=== PATIENT | female | born 1960 | race Caucasian/White ===

== ENCOUNTER 2023-06-10 16:30 | Emergency (ER) | payer OTHER, SELFPAY ==
--- NOTE | 2023-06-10 16:41 | ED.FEMALEGU ---
HPI - Female Genitourinary General Chief complaint: Urogenital-Female Stated complaint: uti symptoms Time Seen by Provider: 06/10/23 16:39 Source: patient Mode of arrival: ambulatory Limitations: no limitations History of Present Illness HPI Narrative: Meghana is a 62-year-old female patient presenting to the clinic today with complaints of possible urinary tract infection. She reports she is already on Bactrim for urinary tract infection but she began having some pressure and urinary frequency. Is wanting her urine recheck. Related Data Home Medications Medication Instructions Recorded Confirmed bupropion HCl 150 mg tablet,12 hr mg PO 06/10/23 sustained-release carbamazepine 100 mg mg PO 06/10/23 tablet,extended release,12 hr cholecalciferol (vitamin D3) 25 25 mcg PO DAILY 06/10/23 06/10/23 mcg (1,000 unit) tablet citalopram 40 mg tablet mg 06/10/23 famotidine 40 mg tablet mg 06/10/23 fluticasone propionate 50 1 spray intranasal DAILY 06/10/23 06/10/23 mcg/actuation nasal spray,suspension levothyroxine 50 mcg tablet mcg 06/10/23 rizatriptan 10 mg tablet mg 06/10/23 sulfamethoxazole 800 tablet 06/10/23 mg-trimethoprim 160 mg tablet Allergies Allergy/AdvReac Type Severity Reaction Status Date / Time adhesive tape Allergy Rash Verified 06/10/23 16:56 cefuroxime Allergy Unknown Verified 06/10/23 16:56 meperidine [From Demerol] Allergy Rash Verified 06/10/23 16:56 Review of Systems Review of Systems: Pertinent positives per HPI. Patient denies any fever, chills, rash, headache, visual changes, dizziness, cough, shortness of breath, chest pain, palpitations, nausea, vomiting, diarrhea, constipation, abdominal pain. PMFSH Comments At the time of my signature, I reviewed and agree with the nursing past medical, surgical, social, and family history. There is no relevant family history pertinent to the patient complaint. Exam Narrative: General: Well-developed, obese, in no apparent distress. Head: Normocephalic, atraumatic. Cardio: Regular rate and rhythm, s1 and s2 normal, no murmur appreciated. Resp: Clear to auscultation bilaterally, no rhonchi, rales, wheezing or rubs. Abdomen: Soft, pliable, bowel sounds present in all quadrants, non-tender to palpation, no organomegly, no CVAT tenderness. Course Course Emergency Course: Portions of this record may have been created with voice recognition software. Level of Care: Express Care Visit Vital Signs Vital signs: Vital signs reviewed MDM - Female Genitourinary MDM Narrative Medical decision making narrative: At the time of visit patient is resting comfortably on the exam table. Patient appears to be nontoxic. Labs: UA is negative for any sign of infection, blood, or protein. Plan: Will have the patient continue taking Bactrim as prescribed. Recommend taking azo for the pressure/burning. Supportive measures were discussed with the patient and they voiced understanding discharge instructions and agrees to treatment plan. Return precautions reviewed Differential Diagnosis Differential diagnosis: Likely urinary tract infection, cystitis and other (OAB, interstitial cystitis) Discharge Plan Discharge Clinical Impression: Symptoms of urinary tract infection Patient Disposition: Home, Self-Care Condition: Stable Instructions: Antibiotic Form, Urinary Tract Infection in Women (ED) Additional Instructions: Continue Bactrim as prescribed May take [id number] azo as needed for bladder pain Increase fluids and stay well hydrated Wipe front to back. May use wet wipes. Avoid tub baths If sexually active- pee before and after intercourse. Wear cotton panties Avoid tight clothing up against the genitals Follow-up with your primary care doctor this week Prescriptions: No Action bupropion HCl 150 mg tablet sustained-release 12 hr PO citalopram 40 mg tablet carbamazepi
[2023-06-10 16:52] VITALS: BP 136/86; PULSE 71; RESP 18; TEMP 36.4; O2SAT 99
== END 2023-06-10 17:20 | disposition home or self-care (01) ==
PROVIDERS: Emergency Provider Nurse Practitioner Family
DX: R35.0 Frequency of micturition (principal); R39.15 Urgency of urination; E03.9 Hypothyroidism, unspecified
CPT/HCPCS: 81003; 99212; G0463